=== PATIENT | male | born 2000 | race African-American/Black ===

== ENCOUNTER 2019-01-03 12:48 | Emergency (ER) | payer OTHER ==
[~2019-01-03] VITALS: Ht 177.8 cm; Wt 93.2 kg
[2019-01-03 13:17] LABS: BASOPHILS % (AUTO) 1.6 % (0.0-2.0); EOSINOPHILS % (AUTO) 1.9 % (1.0-6.0); HEMATOCRIT 42.5 % (41-53); HEMOGLOBIN 13.4 g/dL (13.5-17.5); LYMPHOCYTES # (AUTO) 1.7 K/uL (1.0-4.8); LYMPHOCYTES % (AUTO) 42.1 % (22.0-44.0); MEAN CORPUSCULAR HEMOGLOBIN 21.7 pg (26.0-34.0); MEAN CORPUSCULAR HGB CONC 31.4 G/dL (31.0-37.0); MEAN CORPUSCULAR VOLUME 69 fL (80-100); MONOCYTES # (AUTO) 0.4 K/uL (0.1-1.0); MONOCYTES % (AUTO) 8.9 % (2.0-9.0); NEUTROPHILS # (AUTO) 1.8 K/uL (1.8-7.7); NEUTROPHILS % (AUTO) 45.5 % (40.0-70.0); PLATELET COUNT (AUTO) 227 K/uL (150-450); RED BLOOD CELL COUNT(AUTO) 6.16 MIL/uL (4.50-5.90)
[2019-01-03 13:27] LABS: ANION GAP 6 mmol/L (8-16); CALCIUM, TOTAL 8.9 mg/dL (8.8-10.5); CARBON DIOXIDE 30 mmol/L (22-29); CHLORIDE 104 mmol/L (98-107); GLOMERULAR FILTR. RATE CALC > 60 mL/min (>60); GLUCOSE,RANDOM 103 mg/dL (70-110); POTASSIUM 3.9 mmol/L (3.5-5.1); SODIUM SERUM 140 mmol/L (136-145); UREA NITROGEN, BLOOD 9 mg/dL (7-18)
[2019-01-03 13:35] LABS: ALKALINE PHOSPHATASE 65 U/L (46-116); ASPARTATE AMINOTRANSFERASE 25 U/L (15-37); BILIRUBIN,TOTAL 0.6 mg/dL (0.1-1.0); LIPASE 127 U/L (73-393); TOTAL PROTEIN, SERUM 7.4 g/dL (6.4-8.2)
[2019-01-03 13:42] LABS: APPEARANCE,URINE CLEAR (CLEAR); BILIRUBIN,URINE NEGATIVE (NEGATIVE); GLUCOSE, URINE (UA) NEGATIVE (NEGATIVE); KETONES,URINE NEGATIVE (NEGATIVE); LEUKOCYTE ESTERASE ,URINE NEGATIVE (NEGATIVE); NITRATE,URINE NEGATIVE (NEGATIVE); OCCULT BLOOD,URINE NEGATIVE (NEGATIVE); PROTEIN,URINE NEGATIVE (NEGATIVE); UROBILINOGEN,URINE 0.2 mg/dL (<=1.0)
[2019-01-03 13:44] LABS: ALANINE AMINOTRANSFERASE 24 U/L (12-78)
[2019-01-03] MEDS ORDERED: PANTOPRAZOLE SODIUM 40 MG DR TABLET PO ONE (14:30)
[2019-01-03 15:06] VITALS: BP 133/77
== END 2019-01-03 15:07 | disposition home or self-care (01) ==
LOC: EMS 12:54
DX: K29.70 Gastritis, unspecified, without bleeding (principal); K21.9 Gastro-esophageal reflux disease without esophagitis; I50.9 Heart failure, unspecified; F12.90 Cannabis use, unspecified, uncomplicated

== ENCOUNTER 2019-05-23 17:33 | Emergency (ER) | payer OTHER ==
[~2019-05-23] VITALS: Ht 182.9 cm; Wt 100.0 kg
[2019-05-23 19:03] LABS: APPEARANCE,URINE CLEAR (CLEAR); GLUCOSE, URINE (UA) NEGATIVE (NEGATIVE); KETONES,URINE TRACE mg/dL (NEGATIVE); LEUKOCYTE ESTERASE ,URINE NEGATIVE (NEGATIVE); NITRATE,URINE NEGATIVE (NEGATIVE); OCCULT BLOOD,URINE NEGATIVE (NEGATIVE); PROTEIN,URINE NEGATIVE (NEGATIVE)
[2019-05-23 19:03] LABS: BASOPHILS % (AUTO) 0.7 % (0.0-2.0); EOSINOPHILS % (AUTO) 0.6 % (1.0-6.0); HEMATOCRIT 45.1 % (41-53); HEMOGLOBIN 14.3 g/dL (13.5-17.5); LYMPHOCYTES # (AUTO) 1.7 K/uL (1.0-4.8); LYMPHOCYTES % (AUTO) 19.2 % (22.0-44.0); MEAN CORPUSCULAR HEMOGLOBIN 22.1 pg (26.0-34.0); MEAN CORPUSCULAR HGB CONC 31.7 G/dL (31.0-37.0); MEAN CORPUSCULAR VOLUME 70 fL (80-100); MONOCYTES # (AUTO) 0.7 K/uL (0.1-1.0); MONOCYTES % (AUTO) 7.9 % (2.0-9.0); NEUTROPHILS # (AUTO) 6.3 K/uL (1.8-7.7); NEUTROPHILS % (AUTO) 71.6 % (40.0-70.0); PLATELET COUNT (AUTO) 242 K/uL (150-450); RED BLOOD CELL COUNT(AUTO) 6.46 MIL/uL (4.50-5.90); RED CELL DISTRIBUTION WIDTH 15.4 % (11.5-14.5)
[2019-05-23 19:08] LABS: BILIRUBIN,URINE PRELIM. POSITIVE (NEGATIVE)
[2019-05-23 19:11] LABS: AMPHET/METH SCREEN,URINE NEGATIVE (NEGATIVE); BARBITURATE SCREEN, URINE NEGATIVE (NEGATIVE); BENZODIAZEPINES SCREEN,URINE NEGATIVE (NEGATIVE); CANNABINOID SCREEN,URINE POSITIVE (NEGATIVE); COCAINE SCREEN,URINE NEGATIVE (NEGATIVE); METHADONE SCREEN, URINE NEGATIVE (NEGATIVE); OPIATE SCREEN,URINE NEGATIVE (NEGATIVE)
[2019-05-23 19:14] LABS: PHENCYCLIDINE SCREEN,URINE NEGATIVE (NEGATIVE)
[2019-05-23 19:16] LABS: ANION GAP 10 mmol/L (8-16); CALCIUM, TOTAL 10.1 mg/dL (8.8-10.5); CARBON DIOXIDE 28 mmol/L (22-29); CHLORIDE 101 mmol/L (98-107); CREATININE 1.21 mg/dL (0.60-1.30); GLOMERULAR FILTR. RATE CALC > 60 mL/min (>60); GLUCOSE,RANDOM 103 mg/dL (70-110); POTASSIUM 3.7 mmol/L (3.5-5.1); SODIUM SERUM 139 mmol/L (136-145); UREA NITROGEN, BLOOD 11 mg/dL (7-18)
[2019-05-23 19:20] LABS: BACTERIA,URINE None Seen /HPF (None Seen); MUCUS,URINE Few LPF (None Seen); RBC,URINE 0-2 /HPF (0-2); SQUAMOUS EPITHELIAL CELL,UR Few /LPF (None Seen); WBC,URINE 0-2 /HPF (0-5)
[2019-05-23 19:27] LABS: PLATELET MORPHOLOGY COMMENT LARGE PLTS PRESENT
[2019-05-23 19:29] LABS: B-TYPE NATRIURETIC PEPTIDE < 5 pg/mL (0-100)
[2019-05-23 19:42] LABS: ALANINE AMINOTRANSFERASE 20 U/L (12-78); ALBUMIN 4.5 g/dL (3.4-5.0); ALKALINE PHOSPHATASE 58 U/L (46-116); ASPARTATE AMINOTRANSFERASE 28 U/L (15-37); BILIRUBIN,TOTAL 1.9 mg/dL (0.1-1.0); CREATINE KINASE, TOTAL ONLY 219 U/L (39-308); FREE T4 (FREE THYROXINE) 1.25 ng/dL (0.76-1.46); THYROID STIMULATING HORMONE 2.74 uIU/mL (0.36-3.74); TOTAL PROTEIN, SERUM 8.3 g/dL (6.4-8.2)
[2019-05-23] MEDS ORDERED: IBUPROFEN 400 MG TABLET PO ONE (20:30)
[2019-05-23 22:00] VITALS: BP 141/62
== END 2019-05-23 22:16 | disposition home or self-care (01) ==
LOC: EMS 17:34
DX: R07.9 Chest pain, unspecified (principal); I50.9 Heart failure, unspecified; K21.9 Gastro-esophageal reflux disease without esophagitis; F12.90 Cannabis use, unspecified, uncomplicated
CPT/HCPCS: 84439; 84443; 93005

== ENCOUNTER 2019-08-20 07:24 | Emergency (ER) | payer OTHER ==
[~2019-08-20] VITALS: Ht 182.9 cm; Wt 95.5 kg
[2019-08-20] MEDS ORDERED: BACITRACIN 0.9 GM PACKET OINTMENT TP ONE (09:30)
[2019-08-20 10:00] VITALS: BP 129/76
== END 2019-08-20 10:10 | disposition home or self-care (01) ==
LOC: EMS 07:38
DX: S63.591A Other specified sprain of right wrist, initial encounter (principal); S60.511A Abrasion of right hand, initial encounter; I50.9 Heart failure, unspecified; K21.9 Gastro-esophageal reflux disease without esophagitis; F12.90 Cannabis use, unspecified, uncomplicated; W22.01XA Walked into wall, initial encounter; Y93.89 Activity, other specified; Y92.89 Other specified places as the place of occurrence of the external cause; Y99.8 Other external cause status

== ENCOUNTER 2022-04-05 15:49 | Emergency (ER) | payer MEDICAID ==
[~2022-04-05] VITALS: Ht 185.4 cm; Wt 113.6 kg
[2022-04-05 18:00] LABS: BASOPHILS % (AUTO) 0.9 % (0.0-2.0); EOSINOPHILS % (AUTO) 2.6 % (1.0-6.0); HEMATOCRIT 40.5 % (41-53); HEMOGLOBIN 13.1 g/dL (13.5-17.5); MONOCYTES # (AUTO) 0.7 K/uL (0.1-1.0); PLATELET COUNT (AUTO) 275 K/uL (150-450)
[2022-04-05 18:07] LABS: LYMPHOCYTES # (AUTO) 1.9 K/uL (1.0-4.8); LYMPHOCYTES % (AUTO) 32.3 % (22.0-44.0); MEAN CORPUSCULAR HEMOGLOBIN 22.2 pg (26.0-34.0); MEAN CORPUSCULAR HGB CONC 32.3 G/dL (31.0-37.0); MEAN CORPUSCULAR VOLUME 69 fL (80-100); NEUTROPHILS % (AUTO) 52.2 % (40.0-70.0); RED CELL DISTRIBUTION WIDTH 16.1 % (11.5-14.5)
[2022-04-05 18:09] LABS: ANION GAP 2 mmol/L (8-16); CALCIUM, TOTAL 9.1 mg/dL (8.8-10.5); CARBON DIOXIDE 30 mmol/L (22-29); CHLORIDE 101 mmol/L (98-107); CREATININE 1.04 mg/dL (0.60-1.30); GLUCOSE,RANDOM 90 mg/dL (70-110); SODIUM SERUM 133 mmol/L (136-145); UREA NITROGEN, BLOOD 14 mg/dL (7-18)
[2022-04-05 18:13] LABS: GLOMERULAR FILTR. RATE CALC > 60 mL/min (>60)
[2022-04-05] MEDS ORDERED: ACETAMINOPHEN 500 MG TABLET PO ONE (20:00)
[2022-04-05 20:30] VITALS: BP 129/90
== END 2022-04-05 21:11 | disposition home or self-care (01) ==
LOC: EMS 15:50
DX: R07.89 Other chest pain (principal); Z86.79 Personal history of other diseases of the circulatory system; Z87.19 Personal history of other diseases of the digestive system
CPT/HCPCS: 71045; 80048; 84484; 85025; 93005; 99285; 36415-L1; 36415-TC

== ENCOUNTER 2024-07-31 03:35 | Emergency (ER) | payer BC, MEDICAID ==
[~2024-07-31] VITALS: Ht 182.9 cm; Wt 106.0 kg
[2024-07-31 03:41] VITALS: TEMP 99.3
[2024-07-31] MEDS: LIDOCAINE 1% 10 ML VIAL SQ ONE (04:02)
[2024-07-31] MEDS: CEPHALEXIN MONOHYDRATE 500 MG CAPSULE PO ONE (04:58)
[2024-07-31] MEDS: IBUPROFEN 600 MG TABLET PO ONE (04:59)
[2024-07-31] MEDS: SULFAMETHOX/TRIMETH DS 800-160 MG/TABLET PO ONE (04:59)
[2024-07-31 05:00] VITALS: BP 125/60; PULSE 74; RESP 17; O2SAT 96
== END 2024-07-31 05:57 | disposition home or self-care (01) ==
LOC: EMS 03:38
DX: L02.31 Cutaneous abscess of buttock (principal); K21.9 Gastro-esophageal reflux disease without esophagitis
CPT/HCPCS: 10060; 99284; Z7502; Z7610

== ENCOUNTER 2024-11-26 20:12 | Emergency (ER) | payer SELFPAY ==
[~2024-11-26] VITALS: Ht 185.4 cm; Wt 109.1 kg
[2024-11-26 20:45] VITALS: TEMP 98.1
[2024-11-27] MEDS: TraMADol HCL 50 MG TABLET PO ONE (03:20)
[2024-11-27] MEDS ORDERED: CYCL-448 PO (03:30)
[2024-11-27 03:54] VITALS: BP 131/100; PULSE 56; RESP 16; O2SAT 99
== END 2024-11-27 03:55 | disposition home or self-care (01) ==
LOC: EMS 20:12
DX: S16.1XXA Strain of muscle, fascia and tendon at neck level, initial encounter (principal); M79.18 Myalgia, other site; V89.2XXA Person injured in unspecified motor-vehicle accident, traffic, initial encounter; Y93.89 Activity, other specified; Y92.410 Unspecified street and highway as the place of occurrence of the external cause; Y99.8 Other external cause status
CPT/HCPCS: 72125; 72128; 72131; 99284

== ENCOUNTER 2025-06-03 16:36 | Emergency (ER) | payer OTHER ==
[~2025-06-03] VITALS: Ht 185.4 cm; Wt 108.0 kg
[~2025-06-03 16:36] MED LIST: CYCL-448 PO
[2025-06-03] MEDS ORDERED: SULF-261 PO (18:11)
[2025-06-03] MEDS ORDERED: CEPH-558 PO (18:11)
[2025-06-03 18:16] VITALS: BP 126/79; PULSE 75; RESP 18; TEMP 99.1; O2SAT 99
== END 2025-06-03 18:22 | disposition home or self-care (01) ==
LOC: EMS 16:36
DX: L02.214 Cutaneous abscess of groin (principal); K21.9 Gastro-esophageal reflux disease without esophagitis; Z79.899 Other long term (current) drug therapy
CPT/HCPCS: 99283; 99284